=== PATIENT | female | born 1960 | race Caucasian/White ===

== ENCOUNTER → 2016-04-09 | Outpatient (CLI) | payer BC ==
--- NOTE | 2016-04-09 09:29 | US ---
EXAMINATION TYPE: US renals and bladder DATE OF EXAM: 04/09/2016 9:09 AM COMPARISON: NONE CLINICAL HISTORY: R31.9 hematuria. EXAM MEASUREMENTS: Right Kidney: 10.3 x 5.1 x 4.7 cm Left Kidney: 11.4 x 5.4x 5.4 cm FINDINGS: There is no evidence for hydronephrosis at this point in time. No nephrolithiasis is seen. No thi s are identified. The urinary bladder is anechoic. Bilateral ureteral jets are seen. IMPRESSION: No acute process.
--- NOTE | 2016-04-09 10:45 | CT ---
EXAMINATION TYPE: CT soft tissue neck w con DATE OF EXAM: 04/09/2016 10:18 AM COMPARISON: NONE HISTORY: Neck mass; Right sided neck "pulling" CT DLP: 555 mGycm Automated exposure control for dose reduction was used. CONTRAST: CT scan of the neck is performed following with IV Contrast, patient injected with 100 ml mL of Omnip aque 300. Axial images are obtained, coronal and sagittal reformatted images are reviewed. FINDINGS: There are emphysematous changes throughout the lungs. There is some interstitial fibrosis i nvolving the lungs as well. Visualized intracranial structures are unremarkable. The paranasal sinuses and mastoids are clear. Vertebral body height and alignment are maintained. Atlantoaxial relationships are normal. There is d isc space loss at C5-6 and C6-7 with hypertrophic spondylosis at C6-7 level. There is also uncoverteb ral joint disease at C6-7. The facets appear unremarkable. The major salivary glands are normal. There is some shotty submental and deep cervical adenopathy. No pathologically enlarged lymph nodes a re seen. The thyroid gland enhances homogeneously. The parapharyngeal, oropharyngeal and laryngeal soft tissues are normal. No soft tissue mass is ident ified. IMPRESSION: 1. No evidence of a neck mass at this time. 2. Emphysematous and interstitial changes within the lungs. 3. Mild degenerative changes within the cervical spine.
== END | disposition home or self-care (01) ==
LOC: RADUSMAIN 08:42
PROVIDERS: ATTEND Internal Medicine
DX: R22.1 Localized swelling, mass and lump, neck (principal); R31.9 Hematuria, unspecified; R91.8 Other nonspecific abnormal finding of lung field; M47.812 Spondylosis without myelopathy or radiculopathy, cervical region
CPT/HCPCS: 76770; 70491; Q9967

== ENCOUNTER → 2016-05-03 | Outpatient (CLI) | payer BC ==
--- NOTE | 2016-05-03 19:45 | MR ---
EXAMINATION TYPE: MR cervical spine wo con DATE OF EXAM: 05/03/2016 7:28 PM COMPARISON: HISTORY: Neck pain, RUE radic TECHNIQUE: Multiplanar, multisequence images of the cervical spine were acquired. C2-C3: No evidence for degenerative disc disease. No disc bulge/herniation or protrusion. No Canal stenosis. Foramina are patent bilaterally. C3-C4: No evidence for degenerative disc disease. No disc bulge/herniation or protrusion. No Canal stenosis. Foramina are patent bilaterally. C4-C5: Mild disc desiccation noted. Posterocentral disc herniation effaces the ventral thecal sac. No definite cord contact or central stenosis. Neural foramina are patent bilaterally. C5-C6: Moderate disc desiccation. Posterior disc bulge is greater left paracentral component effaces the ventral thecal sac and results in mild left foraminal encroachment. No evidence for central steno sis or cord contact. C6-C7: No evidence for degenerative disc disease. No disc bulge/herniation or protrusion. No Canal stenosis. Foramina are patent bilaterally. C7-T1: No evidence for degenerative disc disease. No disc bulge/herniation or protrusion. No Canal stenosis. Foramina are patent bilaterally. Cervical segments are intact. There is normal alignment. Cervical spinal cord is of normal signal. Craniovertebral junction relationships are within normal limits. IMPRESSION: 1. Generous disc disease as discussed. 2. Posterocentral disc herniation at C4-5 with effacement of the ventral thecal sac. 3. Disc bulge at C5-6 with left foraminal encroachment as noted.
== END | disposition home or self-care (01) ==
LOC: RADMRIMAIN 18:47
PROVIDERS: ATTEND Internal Medicine
DX: M50.30 Other cervical disc degeneration, unspecified cervical region (principal); M50.221 Other cervical disc displacement at C4-C5 level
CPT/HCPCS: 72141

== ENCOUNTER → 2016-07-29 | Outpatient (CLI) | payer BC ==
--- NOTE | 2016-07-29 08:03 | US ---
EXAMINATION TYPE: US abdomen complete DATE OF EXAM: 07/29/2016 COMPARISON: CT and US CLINICAL HISTORY: R10.84 Abdominal Pain. Left abdominal pain with change in stools, nausea and vomiti ng, and mid abdominal hardness. Patient stated midway through US that she has splenic artery aneurysm . EXAM MEASUREMENTS: Liver Length: 14.7 cm Gallbladder Wall: 0.2 cm CBD: 0.4 cm Spleen: 10.6 cm Right Kidney: 11.6 x 6.0 x 4.8 cm Left Kidney: 11.5 x 5.4 x 5.1 cm Pancreas: hyperechoic Liver: mildly heterogeneous; hyperechoic to right renal cortex suggests fatty liver Gallbladder: wnl Evidence for sonographic Hurd's sign: No CBD: wnl Spleen: wnl; no splenic artery aneurysm noted at hilum as vessel caliber appears consistent in size for short segment observed by US. Right Kidney: No hydronephrosis or masses seen Left Kidney: No hydronephrosis or masses seen Upper IVC: wnl Abd Aorta: wnl The liver is slightly heterogenous. The intrahepatic portion of the IVC and proximal abdominal aorta are within normal limits. There is no evidence of cholelithiasis. Common bile duct is unremarkable. The visualized portions of the pancreas are homogenous. The spleen is unremarkable. Kidneys are s ymmetric and free of hydronephrosis. No renal lesions are seen. IMPRESSION: 1. Mild fatty liver suggested.
== END | disposition home or self-care (01) ==
LOC: RADUSWWP 07:01
PROVIDERS: ATTEND Internal Medicine
DX: R10.84 Generalized abdominal pain (principal)
CPT/HCPCS: 76700

== ENCOUNTER 2016-08-20 08:06 | Day surgery (SDC) | payer BC ==
[2016-08-19 11:48] VITALS: BMI 29.7
[~2016-08-20 08:06] MED LIST: LACTATED RINGERS 1,000 ML IV SCH; LIDOCAINE 1% 20 ML VIAL (10MG/ML) FOR IV START INTRADERMA PRN
[2016-08-20 08:39] VITALS: RESP 16
[2016-08-20] MEDS ORDERED: PROPOFOL 10 MG/ML 20 ML VIAL IV ONE (09:29)
--- NOTE | 2016-08-20 09:54 | P.PCN ---
Date of Procedure: 08/20/16 Preoperative Diagnosis: Postoperative Diagnosis: Procedure(s) Performed: Brief history: Patient is a pleasant 56-year-old white female, scheduled for an elective upper endoscopy as well as colonoscopy as a part of evaluation of GERD and screening for colorectal neoplasia. Procedure performed: Esophagogastroduodenoscopy with biopsy Colonoscopy Preoperative diagnosis: GERD Screening for colon cancer Anesthesia: MAC Procedure: After informed consent was obtained from the patient was brought into the endoscopy unit and IV sedation was administered by anesthesia under continuous monitoring. Initially upper endoscopy was done. The Olympus GF 160 video endoscope was inserted inserted into the mouth and esophagus intubated without any difficulty and was gradually advanced into the stomach and duodenum and carefully examined. The bulb and second part of the duodenum appeared normal. The scope was then withdrawn into the stomach adequately insufflated with air and upon careful examination the antrum had mild gastritis and biopsies were done from this area. The body, cardia and fundus appeared normal. The scope was then withdrawn into the esophagus. The GE junction was located at 40 cm to the incisors. It appeared regular with no erythema erosions or ulcerations. Rest of the esophagus appeared normal. Patient tolerated the procedure well. At this time the patient continued to remain sedation. Initial digital rectal examination was normal. Olympus CF 160 video colonoscope was then inserted into the rectum and gradually advanced to the cecum without any difficulty. Careful examination was performed as the scope was gradually being withdrawn. The prep was excellent. The cecum, ascending colon, transverse colon, descending colon, sigmoid colon and rectum appeared normal. Retroflexion was performed in the rectum and no lesions were noted. Scattered sigmoid diverticulosis seen. Patient tolerated the procedure well. Impression: 1. Upper endoscopy revealed mild antral gastritis, no evidence of esophagitis or Stone's esophagus 2. Colonoscopy revealed scattered sigmoid diverticulosis but no evidence of colitis or colorectal neoplasia. Recommendations: Findings of this examination were discussed with the patient as well as her family. She was advised to follow with the biopsy results. She can have a repeat screening colonoscopy in 10 years. He'll continue with Protonix 40 mg daily and follow antireflux measures. Implants: Indications for Procedure: Operative Findings: Description of Procedure:
[2016-08-20 10:44] VITALS: BP 157/79; PULSE 61
== END 2016-08-20 11:18 | disposition home or self-care (01) ==
LOC: ORWHC2ENDO 08:06
PROVIDERS: ATTEND Internal Medicine Gastroenterology
DX: K29.70 Gastritis, unspecified, without bleeding (principal); Z12.11 Encounter for screening for malignant neoplasm of colon; K21.9 Gastro-esophageal reflux disease without esophagitis; K31.9 Disease of stomach and duodenum, unspecified; K57.30 Diverticulosis of large intestine without perforation or abscess without bleeding; I10 Essential (primary) hypertension; Z79.899 Other long term (current) drug therapy; Z88.6 Allergy status to analgesic agent
CPT/HCPCS: 88305; 88342; 43239; J2704; G0121

== ENCOUNTER → 2016-09-07 | Outpatient (CLI) | payer BC ==
--- NOTE | 2016-09-08 13:08 | MM ---
Reason for exam: screening (asymptomatic). Last mammogram was performed 2 years and 7 months ago. History: Patient is postmenopausal. Physical Findings: A clinical breast exam by your physician is recommended on an annual basis and results should be correlated with mammographic findings. MG Screening Mammo w CAD Bilateral CC and MLO view(s) were taken. Prior study comparison: January 14, 2014, bilateral MG screening mammo w CAD. There are scattered fibroglandular densities. No significant changes when compared with prior studies. ASSESSMENT: Benign, BI-RAD 2 RECOMMENDATION: Routine screening mammogram of both breasts in 1 year.
== END | disposition home or self-care (01) ==
LOC: RADMAMWWP 11:13
PROVIDERS: ATTEND Internal Medicine
DX: Z12.31 Encounter for screening mammogram for malignant neoplasm of breast (principal)

== ENCOUNTER → 2016-10-29 | Outpatient (CLI) | payer BC ==
--- NOTE | 2016-10-29 23:14 | MR ---
EXAMINATION TYPE: MR lumbar spine wo con DATE OF EXAM: 10/29/2016 COMPARISON: NONE HISTORY: LBP, LLE radic TECHNIQUE: Multiplanar, multisequence images of the lumbar spine were acquired. The lumbar vertebra have normal alignment. There is degenerative disc space narrowing throughout the lumbar spine and more severe at L4-5. Lumbar nerve roots appear normal. There is no compression fract ure. There is no lumbar paraspinal mass. Sacroiliac joints appear normal. There is some hypertrophic facet arthropathy and mild lateral recess stenosis at L4-5. There is mild narrowing of the neural for rober due to disc space narrowing and facet arthropathy. This is more severe at L4-5. There are small posterior disc bulges at L2-3 L3-4 L5-S1. IMPRESSION: Multilevel spondylosis. Mild neural foraminal narrowing at L4-5 due to disc space narrowing and facet arthropathy. No acute bony abnormality. Mild lateral recess stenosis as above. No fracture. Small mu ltilevel posterior disc bulging or herniation.
== END | disposition home or self-care (01) ==
LOC: RADMRIMAIN 17:59
PROVIDERS: ATTEND Internal Medicine
DX: M48.06 Spinal stenosis, lumbar region (principal); M99.73 Connective tissue and disc stenosis of intervertebral foramina of lumbar region; M51.26 Other intervertebral disc displacement, lumbar region; M47.816 Spondylosis without myelopathy or radiculopathy, lumbar region; M46.06 Spinal enthesopathy, lumbar region
CPT/HCPCS: 72148

== ENCOUNTER → 2017-05-10 | Outpatient (CLI) | payer BC ==
--- NOTE | 2017-05-10 15:00 | CT ---
EXAMINATION TYPE: CT sinus wo con DATE OF EXAM: 05/10/2017 COMPARISON: 11/14/2014 HISTORY: No saliva and bad breath x 1 year +. CT DLP: [address] of the paranasal sinuses was performed in the axial and coronal planes. Bone and soft tissue settings are submitted. The paranasal sinuses demonstrate normal aeration and development. The paranasal sinuses are free of mucosal thickening or air fluid level. The osteal meatal units are patent bilaterally. Mild nasal septal deviation from left to right. No bony destructive changes are seen within the field of view. IMPRESSION: Mild nasal septal deviation from left to right.
== END | disposition home or self-care (01) ==
LOC: RADCTMAIN 14:26
PROVIDERS: ATTEND Internal Medicine
DX: J34.2 Deviated nasal septum (principal); J32.9 Chronic sinusitis, unspecified
CPT/HCPCS: 70486

== ENCOUNTER → 2018-05-10 | Outpatient (CLI) | payer BC ==
--- NOTE | 2018-05-10 12:48 | XR ---
EXAMINATION TYPE: XR chest 2V DATE OF EXAM: 05/10/2018 COMPARISON: 02/05/2015 TECHNIQUE: PA and lateral views submitted. HISTORY: Cough and congestion FINDINGS: The lungs are clear and there is no pneumothorax, pleural effusion, or focal pneumonia. Hyperinflat ion suggests asthma or COPD. Hypertrophic or degenerative change of the spine. Atherosclerotic change aorta. Arthropathy of the shoulders. Diffuse osteopenia. IMPRESSION: 1. No acute process.
== END | disposition home or self-care (01) ==
LOC: RADXRMAIN 12:10
PROVIDERS: ATTEND Internal Medicine
DX: R05 Cough (principal)
CPT/HCPCS: 71046

== ENCOUNTER 2018-10-13 17:45 | Emergency (ER) | payer BC ==
[2018-10-13 17:57] VITALS: BP 111/73; PULSE 98; RESP 18; TEMP 99.2
--- NOTE | 2018-10-13 18:32 | XR ---
EXAMINATION TYPE: XR foot complete LT DATE OF EXAM: 10/13/2018 COMPARISON: NONE HISTORY: Foot pain TECHNIQUE: 3 views FINDINGS: Metatarsals appear intact. I see no fracture nor dislocation. There are no erosions. There is plantar calcaneal spurring. IMPRESSION: Calcaneal spurring. No fracture seen.
--- NOTE | 2018-10-13 18:32 | XR ---
EXAMINATION TYPE: XR ankle complete LT DATE OF EXAM: 10/13/2018 COMPARISON: NONE HISTORY: Foot pain TECHNIQUE: 3 views FINDINGS: Ankle mortise is anatomic. I see no fracture nor dislocation. There is plantar calcaneal sp urring. IMPRESSION: Calcaneal spurring. No fracture seen.
--- NOTE | 2018-10-13 19:07 | ED ---
General Adult HPI - General Chief complaint: Extremity Injury, Lower Stated complaint: Ankle injury Time Seen by Provider: 10/13/18 17:58 Source: patient, RN notes reviewed, old records reviewed Mode of arrival: ambulatory Limitations: no limitations - History of Present Illness Initial comments: 58-year-old female patient presents to the chief complaint of left ankle sprain. Patient ports that she was working in yard when she stepped into a hole, suffered a left ankle inversion injury. Patient currently complains of pain at her lateral malleoli. Patient is nonambulatory. She denies any other injury, denies any trauma to head or neck. Systemic: Pt denies fatigue, fever/chills, rash. Pt denies weakness, night sweats, weight loss. Neuro: Pt denies headache, visual disturbances, syncope or pre-syncope. HEENT: Pt denies ocular discharge or irritation, otalgia, rhinorrhea, pharyngitis or notable lymphadenopathy. Cardiopulmonary: Pt denies chest pain, SOB, heart palpitations, dyspnea on exertion. Abdominal/GI: Pt denies abdominal pain, n/v/d. : Pt denies dysuria, burning w/ urination, frequency/urgency. Denies new onset urinary or bowel incontinence. MSK: Pt denies loss of strength or function in extremities. Neuro: Pt denies new onset weakness, paresthesias. - Related Data Home Medications Medication Instructions Recorded Confirmed Losartan Potassium 100 mg PO DAILY 11/19/14 08/20/16 Carvedilol [Coreg] 3.125 mg PO QAM 08/19/16 08/20/16 Omeprazole [PriLOSEC] 20 mg PO AC-BID 08/19/16 08/20/16 Pantoprazole [Protonix] 40 mg PO DAILY 08/19/16 08/20/16 Allergies Allergy/AdvReac Type Severity Reaction Status Date / Time ibuprofen [From Motrin] AdvReac Nausea & Verified 10/13/18 17:57 Vomiting naproxen [From Naprosyn] AdvReac Nausea & Verified 10/13/18 17:57 Vomiting Review of Systems ROS Statement: Those systems with pertinent positive or pertinent negative responses have been documented in the HPI. ROS Other: All systems not noted in ROS Statement are negative. Past Medical History Past Medical History: GERD/Reflux, Hypertension Additional Past Medical History / Comment(s): states has had abdominal bloating and vomiting/nausea for weeks. rt shoulder pain, bicep tendonitis, neck pain History of Any Multi-Drug Resistant Organisms: None Reported Past Surgical History: Bladder Surgery, Hysterectomy, Tonsillectomy, Tubal Ligation Past Anesthesia/Blood Transfusion Reactions: No Reported Reaction Past Psychological History: Anxiety Smoking Status: Current every day smoker Past Alcohol Use History: Occasional Past Drug Use History: None Reported - Past Family History Mother Family Medical History: No Reported History General Exam - General Exam Comments Initial Comments: Constitutional: NAD, AOX3, Pt has pleasant affect. HEENT: NC/AT, trachea midline, neck supple, no lymphadenopathy. Posterior pharynx non erythematous, without exudates. External ears appear normal, without discharge. Mucous membranes moist. Eyes PERRLA, EOM intact. There is no scleral icterus. No pallor noted. Cardiopulmonary: RRR, no murmurs, rubs or gallops, no JVD noted. Lungs CTAB in anterior and posterior werner. No peripheral edema. Abdominal exam: Abdomen soft and non-distended. Abdomen non-tender to palpation in all 4 quadrants. Bowel sounds active in LLQ. No hepatosplenomegaly. No ecchymosis Neuro: CN II-XII grossly intact. No nuchal rigidity. No raccon eyes, no bell s ign, no hemotympanum. No cervical spinal tenderness. MSK: Left Lateral malleoli moderately tender to palpation, no jugular/and tach, patient little toes, cap refill less than 2 seconds. Patient placed in a posterior ankle splint neurovascular intact Placement. No posterior calf tenderness bilaterally, homans sign negative bilaterally. Posterior tibialis and radial pulse +2 bilaterally. Sensation intact in upper and lower extremities. Full active ROM in upper and lower extremities, 5/5 stregnth. Limitations: no limitations Course Vital Signs 10/13/18 17:55 Temperature 99.2 F Pulse Rate 98 Respiratory 18 Rate Blood Pressure 111/73 O2 Sat by Pulse 99 Oximetry Medical Decision Making - Medical Decision Making 58-year-old female patient presents to ED chief complaint of left ankle sprain. Patient vital signs stable, afebrile. His exam displayed left lateral malleolus tenderness. Plain films negative. Patient placed a posterior ankle splint, neurovascular intact of some pleasant. Patient will have right ankle, Lasix crutches and will follow up with primary care provider as well as orthopedic consult. Case discussed with Dr. Valerio. Disposition Clinical Impression: Ankle sprain Disposition: HOME SELF-CARE Condition: Stable Instructions (If sedation given, give patient instructions): Ankle Sprain (ED) Additional Instructions: Patient to adhere to previously discussed treatment plan and will take medication(s) as directed. Patient to follow up with PCP in 1-2 days. Patient to return to ED if symptoms do not improve. Follow up with primary care provider and orthopedic consult tomorrow. Return to ER if condition worsens. Use crutches, do not bear weight on affected ankle. Is patient prescribed a controlled substance at d/c from ED?: No Referrals: Rubén Pitt MD [Primary Care Provider] - 1-2 days Connor Rivera MD [STAFF PHYSICIAN] - 1-2 days
== END 2018-10-13 19:40 | disposition home or self-care (01) ==
LOC: EC 17:45
DX: S93.402A Sprain of unspecified ligament of left ankle, initial encounter (principal); K21.9 Gastro-esophageal reflux disease without esophagitis; I10 Essential (primary) hypertension; F17.200 Nicotine dependence, unspecified, uncomplicated; Z79.02 Long term (current) use of antithrombotics/antiplatelets; Z79.899 Other long term (current) drug therapy; Z88.6 Allergy status to analgesic agent; W18.42XA Slipping, tripping and stumbling without falling due to stepping into hole or opening, initial encounter; Y92.096 Garden or yard of other non-institutional residence as the place of occurrence of the external cause
CPT/HCPCS: 29515; 99284

== ENCOUNTER 2019-10-10 12:32 | Emergency (ER) | payer BC ==
[2019-10-10 12:40] VITALS: TEMP 98
[2019-10-10] MEDS ORDERED: MORPHINE SULFATE 4 MG/ML SYRINGE IVP STA (12:57)
[2019-10-10] MEDS ORDERED: ONDANSETRON 4 MG/2 ML VIAL IVP STA (12:58)
[2019-10-10] MEDS ORDERED: SODIUM CHLORIDE 0.9% 1,000 ML IV STA (13:04)
--- NOTE | 2019-10-10 13:06 | ED ---
General Adult HPI - General Chief complaint: Abdominal Pain Stated complaint: abd pain Time Seen by Provider: 10/10/19 12:42 Source: patient, EMS Mode of arrival: EMS Limitations: no limitations - History of Present Illness Initial comments: Dictation was produced using [employer] dictation software. please excuse any grammatical, word or spelling errors. This patient was cared for during a federal and state declared state of emergency secondary to Covid 19 Chief Complaint: 59-year-old female with multiple comorbidities presents with l eft-sided flank pain. History of Present Illness: 59-year-old female she has multiple complaints pa tient brought in by EMS. She states that she has left lower back pain. Patient has history of chronic back pain. She also states that she hasn't had a normal bowel movement in several days. She also does have history of kidney stones. She does complain of some mild urinary symptoms. She denies that it's dysuria. She describes it more as urgency and hesitancy. Denies any fever or chills, night sweats. No nausea and vomiting. They said her pain is so severe that she can't sit down or lay down. The ROS documented in this emergency department record has been reviewed and confirmed by me. Those systems with pertinent positive or negative responses have been documented in the HPI. All other systems are other negative and/or noncontributory. PHYSICAL EXAM: General Impression: Alert and oriented x3, acute distress secondary to pain HEENT: Normocephalic atraumatic, extra-ocular movements intact, pupils equal and reactive to light bilaterally, mucous membranes moist. Cardiovascular: Heart regular rate and rhythm Chest: Able to complete full sentences, no retractions, no tachypnea Abdomen: abdomen soft, non-tender, non-distended, no organomegaly Musculoskeletal: Pulses present and equal in all extremities, no peripheral edema, no CVA tenderness mild tenderness to palpation over the left lower back Motor: no focal deficits noted Neurological: CN II-XII grossly intact, no focal motor or sensory deficits noted Skin: Intact with no visualized rashes Psych: Normal affect and mood ED course: 59-year-old female presents with left-sided back and flank pain. Signs upon arrival are within acceptable limits. Laboratory evaluation obtained. Leukocytosis 15.7. Metabolic panel shows mild acidosis. Urinalysis shows greater then 182 red blood cells and 6 white blood cells. Computed tomography scan of the abdomen and pelvis was obtained showing obstructive distal left ureteral calculus. There appears to be 2 calculi in the left ureter. These stones appear to be very distal and near expulsion into the bladder Patient received fluids patient reevaluated at bedside and appears to be much more comfortable. Patient likely passed stone from her ureter to the bladder. Patient agreeable for discharge. She is given analgesia to go home with. She is given referral to urology. Return parameters discussed. Patient be discharged. - Related Data Home Medications Medication Instructions Recorded Confirmed Losartan Potassium 100 mg PO DAILY 11/19/14 10/10/19 Carvedilol [Coreg] 3.125 mg PO QAM 08/19/16 10/10/19 Omeprazole [PriLOSEC] 20 mg PO DAILY 08/19/16 10/10/19 Ergocalciferol [Vitamin D2] 50,000 unit PO CHARLES 10/10/19 10/10/19 Pravastatin Sodium [Pravachol] 20 mg PO HS 10/10/19 10/10/19 traMADol HCL [Ultram] 50 mg PO Q6HR PRN 10/10/19 10/10/19 Previous Rx's Medication Instructions Recorded HYDROcodone/APAP 5-325MG [Edgard 1 tab PO Q6HR PRN 3 Days #12 tab 10/10/19 5-325] Allergies Allergy/AdvReac Type Severity Reaction Status Date / Time ibuprofen [From Motrin] AdvReac Nausea & Verified 10/10/19 13:53 Vomiting naproxen [From Naprosyn] AdvReac Nausea & Verified 10/10/19 13:53 Vomiting Review of Systems ROS Statement: Those systems with pertinent positive or pertinent negative responses have been documented in the HPI. ROS Other: All systems not noted in ROS Statement are negative. Past Medical History Past Medical History: GERD/Reflux, Hypertension Additional Past Medical History / Comment(s): states has had abdominal bloating and vomiting/nausea for weeks. rt shoulder pain, bicep tendonitis, neck pain History of Any Multi-Drug Resistant Organisms: None Reported Past Surgical History: Bladder Surgery, Hysterectomy, Tonsillectomy, Tubal Ligation Past Anesthesia/Blood Transfusion Reactions: No Reported Reaction Past Psychological History: Anxiety Smoking Status: Current every day smoker Past Alcohol Use History: Occasional Past Drug Use History: None Reported - Past Family History Mother Family Medical History: No Reported History General Exam Limitations: no limitations Course Vital Signs 10/10/19 10/10/19 12:37 12:44 Temperature 98 F Pulse Rate 78 Respiratory 20 Rate Blood Pressure 157/94 O2 Sat by Pulse 97 Oximetry Medical Decision Making - Lab Data Result diagrams: 10/10/19 13:01 10/10/19 13:01 Lab Results 10/10/19 10/10/19 10/10/19 Range/Units 13:01 13:01 13:01 WBC 15.7 H (3.8-10.6) k/uL RBC 4.81 (3.80-5.40) m/uL Hgb 15.4 (11.4-16.0) gm/dL Hct 46.8 H (34.0-46.0) % MCV 97.1 (80.0-100.0) fL MCH 32.1 (25.0-35.0) pg MCHC 33.0 (31.0-37.0) g/dL RDW 11.9 (11.5-15.5) % Plt Count 354 (150-450) k/uL Neutrophils % 87 % Lymphocytes % 8 % Monocytes % 3 % Eosinophils % 1 % Basophils % 0 % Neutrophils # 13.7 H (1.3-7.7) k/uL Lymphocytes # 1.3 (1.0-4.8) k/uL Monocytes # 0.5 (0-1.0) k/uL Eosinophils # 0.1 (0-0.7) k/uL Basophils # 0.0 (0-0.2) k/uL PT (9.0-12.0) sec INR (<1.2) APTT (22.0-30.0) sec Sodium 138 (137-145) mmol/L Potassium 4.6 (3.5-5.1) mmol/L Chloride 108 H (98-107) mmol/L Carbon Dioxide 19 L (22-30) mmol/L Anion Gap 11 mmol/L BUN 17 (7-17) mg/dL Creatinine 0.84 (0.52-1.04) mg/dL Est GFR (CKD-EPI)AfAm 88 (>60 ml/min/1.73 sqM) Est GFR (CKD-EPI)NonAf 76 (>60 ml/min/1.73 sqM) Glucose 128 H (74-99) mg/dL Calcium 9.9 (8.4-10.2) mg/dL Magnesium 1.8 (1.6-2.3) mg/dL Total Bilirubin 0.8 (0.2-1.3) mg/dL AST 41 H (14-36) U/L ALT 35 H (4-34) U/L Alkaline Phosphatase 82 (38-126) U/L Total Protein 7.3 (6.3-8.2) g/dL Albumin 4.7 (3.5-5.0) g/dL Lipase 88 (23-300) U/L Urine Color Light Red Urine Appearance Cloudy H (Clear) Urine pH 6.5 (5.0-8.0) Ur Specific [place] 1.029 (1.001-1.035) Urine Protein 1+ H (Negative) Urine Glucose (UA) Negative (Negative) Urine Ketones Negative (Negative) Urine Blood Large H (Negative) Urine Nitrite Negative (Negative) Urine Bilirubin Negative (Negative) Urine Urobilinogen 2.0 (<2.0) mg/dL Ur Leukocyte Esterase Trace H (Negative) Urine RBC >182 H (0-5) /hpf Urine WBC 6 H (0-5) /hpf Ur Squamous Epith Cells 24 H (0-4) /hpf Urine Bacteria Occasional H (None) /hpf Hyaline Casts 3 H (0-2) /lpf Urine Mucus Few H (None) /hpf 10/10/19 Range/Units 14:34 WBC (3.8-10.6) k/uL RBC (3.80-5.40) m/uL Hgb (11.4-16.0) gm/dL Hct (34.0-46.0) % MCV (80.0-100.0) fL MCH (25.0-35.0) pg MCHC (31.0-37.0) g/dL RDW (11.5-15.5) % Plt Count (150-450) k/uL Neutrophils % % Lymphocytes % % Monocytes % % Eosinophils % % Basophils % % Neutrophils # (1.3-7.7) k/uL Lymphocytes # (1.0-4.8) k/uL Monocytes # (0-1.0) k/uL Eosinophils # (0-0.7) k/uL Basophils # (0-0.2) k/uL PT 10.1 (9.0-12.0) sec INR 1.0 (<1.2) APTT 23.2 (22.0-30.0) sec Sodium (137-145) mmol/L Potassium (3.5-5.1) mmol/L Chloride (98-107) mmol/L Carbon Dioxide (22-30) mmol/L Anion Gap mmol/L BUN (7-17) mg/dL Creatinine (0.52-1.04) mg/dL Est GFR (CKD-EPI)AfAm (>60 ml/min/1.73 sqM) Est GFR (CKD-EPI)NonAf (>60 ml/min/1.73 sqM) Glucose (74-99) mg/dL Calcium (8.4-10.2) mg/dL Magnesium (1.6-2.3) mg/dL Total Bilirubin (0.2-1.3) mg/dL AST (14-36) U/L ALT (4-34) U/L Alkaline Phosphatase (38-126) U/L Total Protein (6.3-8.2) g/dL Albumin (3.5-5.0) g/dL Lipase (23-300) U/L Urine Color Urine Appearance (Clear) Urine pH (5.0-8.0) Ur Specific [place] (1.001-1.035) Urine Protein (Negative) Urine Glucose (UA) (Negative) Urine Ketones (Negative) Urine Blood (Negative) Urine Nitrite (Negative) Urine Bilirubin (Negative) Urine Urobilinogen (<2.0) mg/dL Ur Leukocyte Esterase (Negative) Urine RBC (0-5) /hpf Urine WBC (0-5) /hpf Ur Squamous Epith Cells (0-4) /hpf Urine Bacteria (None) /hpf Hyaline Casts (0-2) /lpf Urine Mucus (None) /hpf Disposition Clinical Impression: Kidney stone on left side Disposition: HOME SELF-CARE Condition: Fair Instructions (If sedation given, give patient instructions): Kidney Stones (ED) Prescriptions: HYDROcodone/APAP 5-325MG [Edgard 5-325] 1 tab PO Q6HR PRN 3 Days #12 tab PRN Reason: Severe Pain Is patient prescribed a controlled substance at d/c from ED?: Yes If prescribed controlled substance>3 days was MAPS reviewed?: Prescribed <3 Days Referrals: Jeanmarie Pittman MD [STAFF PHYSICIAN] - 1-2 days Time of Disposition: 15:38
[2019-10-10] MEDS ORDERED: HYDROmorphone 1 MG/ML 1 ML SYRINGE IVP STA ×2 (13:29→14:12)
[2019-10-10 13:37] LABS: Appearance,Urine Cloudy (Clear); Bacteria,Urine Occasional /hpf; Bilirubin,Urine Negative (Negative); Blood,Urine Large (Negative); Color,Urine Light Red; Glucose,Urine (UA) Negative (Negative); Hyaline Casts,Urine 3 /lpf (0-2); Ketones,Urine Negative (Negative); Leukocyte Esterase,Urine Trace (Negative); Mucus,Urine Few /hpf; Nitrite,Urine Negative (Negative); PH, Urine 6.5 (5.0-8.0); Protein,Urine 1+ (Negative); RBC,Urine >182 /hpf (0-5); Specific Gravity,Urine 1.029 (1.001-1.035); Squamous Epithelial Cell,Urine 24 /hpf (0-4); WBC,Urine 6 /hpf (0-5)
[2019-10-10 13:53] LABS: Basophils % (A) 0 %; Eosinophils # (A) 0.1 k/uL (0-0.7); Eosinophils % (A) 1 %; HCT 46.8 % (34.0-46.0); HGB 15.4 gm/dL (11.4-16.0); Lymphocytes # (A) 1.3 k/uL (1.0-4.8); Lymphocytes % (A) 8 %; MCH 32.1 pg (25.0-35.0); MCV 97.1 fL (80.0-100.0); Mean Platelet Volume 8.1; Monocytes # (A) 0.5 k/uL (0-1.0); Monocytes % (A) 3 %; Neutrophils # (A) 13.7 k/uL (1.3-7.7); Neutrophils % (A) 87 %; Platelet Count 354 k/uL (150-450); RBC 4.81 m/uL (3.80-5.40); RDW 11.9 % (11.5-15.5); WBC 15.7 k/uL (3.8-10.6)
[2019-10-10 14:04] LABS: Albumin 4.7 g/dL (3.5-5.0); Calcium 9.9 mg/dL (8.4-10.2); Magnesium 1.8 mg/dL (1.6-2.3); Potassium 4.6 mmol/L (3.5-5.1); Total Bilirubin 0.8 mg/dL (0.2-1.3); Total Protein 7.3 g/dL (6.3-8.2)
--- NOTE | 2019-10-10 14:31 | CT ---
EXAMINATION TYPE: CT abdomen pelvis w con DATE OF EXAM: 10/10/2019 COMPARISON: CT 11/26/2014 HISTORY: Left sided pain with rectal pressure. CT DLP: 1061.2 mGycm Automated exposure control for dose reduction was used. TECHNIQUE: Helical acquisition of images from the lung bases through the pelvis have been completed. CONTRAST: Performed without Oral Contrast and with IV Contrast, patient injected with 100 mL of Isovue 300. FINDINGS: LUNG BASES: No significant abnormality is appreciated. AORTA: No significant abnormality is appreciated. LIVER/GB: Liver shows low attenuation likely due to hepatic steatosis. Gallbladder is unremarkable. PANCREAS: No significant abnormality is seen. SPLEEN: No significant abnormality is seen. ADRENALS: No significant abnormality is seen. KIDNEYS: Left kidney shows perinephric fluid and hydronephrosis, there is left-sided hydroureter. At the level of the distal left ureter there is calcification present at the level of the ureterovesical orifice, there may be 2 separate calcifications, calcification measures roughly 6 mm with a possible second smaller calcification measuring 3 to 4 mm REPRODUCTIVE ORGANS: Uterus is absent, ovaries within normal limits BOWEL: Some diverticular change associated with the sigmoid colon, there is no bowel obstruction, th e appendix is normal FREE AIR: No Free Air visible. ASCITES: None visible. PELVIC ADENOPATHY: None visualized. RETROPERITONEAL ADENOPATHY: No Retroperitoneal Adenopathy visible. URINARY BLADDER: No significant abnormality is seen. OSSEOUS STRUCTURES: There are degenerative disc changes present within the lumbar spine, there is a spinal curvature. IMPRESSION: OBSTRUCTIVE DISTAL LEFT URETERAL CALCULUS OR CALCULI PROBABLE FORNICEAL RUPTURE
[2019-10-10 15:03] LABS: Partial Thromboplastin Time 23.2 sec (22.0-30.0); Prothrombin Time 10.1 sec (9.0-12.0)
[2019-10-10] MEDS ORDERED: ACET/COD 300 MG/30 MG STARTER PACK 6 TAB BTL PO STA (15:38)
[2019-10-10] MEDS ORDERED: ONDANSETRON 4 MG ODT STARTER PACK 2 TAB BTL PO STA (15:38)
[2019-10-10 16:21] VITALS: BP 148/87; PULSE 80; RESP 16
== END 2019-10-10 16:19 | disposition home or self-care (01) ==
LOC: EC 12:32
DX: N20.2 Calculus of kidney with calculus of ureter (principal); E87.2 Acidosis; K21.9 Gastro-esophageal reflux disease without esophagitis; I10 Essential (primary) hypertension; G89.29 Other chronic pain; M54.9 Dorsalgia, unspecified; F17.200 Nicotine dependence, unspecified, uncomplicated; Z79.899 Other long term (current) drug therapy; Z88.6 Allergy status to analgesic agent; Z87.442 Personal history of urinary calculi
CPT/HCPCS: 36415; 80053; 83690; 83735; 85025; 85610; 85730; 81001; 74177; 99284; 96374; 96375 ×2; 96376; 96361; J2270; J2405; J1170; S0119; Q9967

== ENCOUNTER → 2019-10-25 | Outpatient (CLI) | payer BC ==
--- NOTE | 2019-10-25 18:01 | US ---
EXAMINATION TYPE: US kidneys/renal and bladder DATE OF EXAM: 10/25/2019 COMPARISON: CT 10/10/19; Ultrasound 07/29/2016 CLINICAL HISTORY: N13.2 L hydroureternephrosis. Left ureter calculus; Pressure in bladder area. EXAM MEASUREMENTS: Right Kidney: 11.7 x 5.4 x 5.7 cm Left Kidney: 12.7 x 5.2 x 4.9 cm Right Kidney: No hydronephrosis or masses seen. Left Kidney: No hydronephrosis or masses seen. Bladder: Unremarkable as seen. Other: Suggested 5 mm hyperechoic focus near expected position of distal left ureter, which could re present calcification. However, left Doppler ureteral jet is visualized; so no obstructive uropathy a t this time. Bilateral Jets seen: Yes IMPRESSION: Negative for obstructive uropathy at this time.
== END | disposition home or self-care (01) ==
LOC: RADUSWWP 15:23
PROVIDERS: ATTEND Urology
DX: N13.2 Hydronephrosis with renal and ureteral calculous obstruction (principal)
CPT/HCPCS: 76770

== ENCOUNTER → 2020-08-04 | Outpatient (CLI) | payer BC ==
--- NOTE | 2020-08-04 13:33 | US ---
EXAMINATION TYPE: US venous doppler duplex LE RT DATE OF EXAM: 08/04/2020 1:21 PM COMPARISON: Right lower extremity venous ultrasound February 17, 2016 CLINICAL HISTORY: M79.661 PAIN IN RT LOWER LIMB. PATIENT FELL LUMP ON SIDE OF KNEE SIDE PERFORMED: Right TECHNIQUE: The lower extremity deep venous system is examined utilizing real time linear array sonog virgie with graded compression, doppler sonography and color-flow sonography. VESSELS IMAGED: Common Femoral Vein Deep Femoral Vein Greater Saphenous Vein * Femoral Vein Popliteal Vein Small Saphenous Vein * Proximal Calf Veins (* superficial vessels) Right Leg: Negative for DVT Grayscale, color doppler, spectral doppler imaging performed of the deep veins of the right lower ext remity. There is normal flow, compressibility, vascular waveforms. IMPRESSION: No ultrasound evidence for acute DVT in the right lower extremity. No significant change from prior.
== END | disposition home or self-care (01) ==
LOC: RADUSWWP 13:02
PROVIDERS: ATTEND Internal Medicine
DX: M79.661 Pain in right lower leg (principal)

== ENCOUNTER → 2021-01-08 | Outpatient (CLI) | payer BC ==
--- NOTE | 2021-01-08 15:34 | CT ---
EXAMINATION TYPE: CT sinus wo con DATE OF EXAM: 01/08/2021 COMPARISON: CT May 10, 2017 HISTORY: Acute Sinusitis CT DLP: 570.8 mGycm. Automated Exposure Control for Dose Reduction was Utilized. TECHNIQUE: CT scan of the sinuses is performed without contrast, axial images are obtained, coronal r eformatted images are also reviewed. FINDINGS: The paranasal sinuses including the frontal, ethmoid, sphenoid, and maxillary sinuses bila terally remain well-aerated without abnormal opacification or air fluid levels currently. The ostiom eatal complex is patent bilaterally on coronal image 13. Nasal septum remains deviated to right of m idline inferiorly. Visualized portion of mastoid air cells show no abnormal opacification. The globes are intact bilate rally. Visualized portion of brain parenchyma is unremarkable. IMPRESSION: The sinuses remain clear and the ostiomeatal complex is patent bilaterally. No significa nt change from prior.
== END | disposition home or self-care (01) ==
LOC: RADCTMAIN 14:37
PROVIDERS: ATTEND Otolaryngology
DX: J34.2 Deviated nasal septum (principal)
CPT/HCPCS: 70486

== ENCOUNTER → 2021-03-18 | Outpatient (CLI) | payer BC ==
--- NOTE | 2021-03-19 10:22 | MM ---
Reason for exam: screening (asymptomatic). Last mammogram was performed 4 years and 6 months ago. History: Patient is postmenopausal. Physical Findings: A clinical breast exam by your physician is recommended on an annual basis and results should be correlated with mammographic findings. MG 3D Screening Mammo W/Cad Bilateral CC and MLO view(s) were taken. Prior study comparison: September 07, 2016, bilateral MG screening mammo w CAD. February 04, 2014, left breast MG work up mamm w CAD LT. There are scattered fibroglandular densities. Finding #1: There are typically benign round calcifications in the left breast. Finding #2: There are new grouped/clustered calcifications in the posterior position of the right breast. ASSESSMENT: Incomplete: need additional imaging evaluation, BI-RAD 0 RECOMMENDATION: Special view mammogram of the right breast. [facility] will attempt to contact patient to return for supplemental views.
== END | disposition home or self-care (01) ==
LOC: RADMAMWWP 16:13
PROVIDERS: ATTEND Internal Medicine
DX: Z12.31 Encounter for screening mammogram for malignant neoplasm of breast (principal); Z78.0 Asymptomatic menopausal state
CPT/HCPCS: 77063; 77067

== ENCOUNTER → 2021-06-08 | Day surgery (SDC) | payer BC ==
[2021-06-08 10:45] VITALS: BP 150/89; PULSE 75; RESP 16; TEMP 97.9
--- NOTE | 2021-06-08 13:53 | MM ---
EXAMINATION TYPE: MG discontinued stereo core RT DATE OF EXAM: 06/08/2021 COMPARISON: NONE CLINICAL HISTORY: Microcalcifications right breast FINDINGS: The procedure of stereotactic guided core biopsy was explained to the patient. Benefits, a lternatives, and risks were discussed. An informed consent was then obtained. The patient could not tolerate laying flat on the stereotactic procedure table and therefore examinat ion was discontinued. Needle localization with open biopsy is advised. IMPRESSION: Suspicious BI-RADS 4. Needle Localization with open biopsy is advised.
== END ==
LOC: RADMAMWWP 10:12
PROVIDERS: ATTEND Internal Medicine
DX: R92.8 Other abnormal and inconclusive findings on diagnostic imaging of breast (principal); Z53.8 Procedure and treatment not carried out for other reasons

== ENCOUNTER → 2021-09-18 | Outpatient (CLI) | payer BC ==
[2021-09-18 11:02] VITALS: BP 162/91; PULSE 73; RESP 16; TEMP 98.1
--- NOTE | 2021-09-18 11:46 | P.GSHP ---
History of Present Illness H&P Date: 09/18/21 Chief Complaint: abnormal right breast mammogram Miriam is a 61 year old white female seen in consultation for Dr. Pitt regarding microcalcifications of concern in the lower lateral right breast. A bilateral diagnostic mammogram was done on 03-18-21. NOthing of concern was seen on the left breast. An attempted stero biopsy was done on 06-08-21. The patient could not tolerate the table and was referred for needle localization and open biopsy. As herniated disc in her back and neck as well as arthritis in her spine. The patient does not feel any lumps masses or nodules of concern in either breast. She is not complaining of any pain in her breast. She has not had any recent trauma or infection in the breast. She has not had any surgery on her breast in the past. Caffiene: stopped used to drink pop/2 glasses/day; coffee/ 1 pot/day nicotine: 2 PPD/ stopped 4 months ago; started at 15 years hormones: premarin 1 month; BCP: none chocolate: binge Family History: mother: rectal cancer Hormonal History: menarche: 12 , breast fed: yes, age at first : 20 menopause: hysterectomy at 50 took ovaries, done for bleeding Surgical History: bladder lift hysterectomy tonsil Medical History: back pain herniated disc HTN Social History: 18:2 packs per day stopped 4 months ago started at 15 Alcohol: rare drugs: Marijuana gummies, occasional - Constitutional Constitutional: Denies chills, Denies fever - EENT Eyes: bilateral blurred vision, denies pain Ears: deny: decreased hearing, tinnitus Ears, nose, mouth and throat: Reports headache - Breasts Breasts: bilateral: as per HPI - Cardiovascular Cardiovascular: Denies chest pain, Denies shortness of breath - Respiratory Respiratory: Denies cough, Denies 7 - Gastrointestinal Comment: had a colonoscopy about 5 years recommended to have another Gastrointestinal: Denies abdominal pain, Denies diarrhea, Denies nausea, Denies vomiting - Genitourinary (Female) Comment: bladder lift Genitourinary: Denies dysuria, Denies hematuria - Menstruation Menstruation: Reports post hysterectomy - Musculoskeletal Musculoskeletal: Reports as per HPI - Integumentary Integumentary: Denies pruritus, Denies rash - Neurological Neurological: Reports numbness, Denies weakness - Psychiatric Psychiatric: Reports anxiety, Reports depression - Endocrine Endocrine: Reports weight change, Denies fatigue - Hematologic/Lymphatic Comment: none - Allergic/Immunologic Allergic/Immunologic: Reports as per HPI Past Medical History Past Medical History: GERD/Reflux, Hypertension Additional Past Medical History / Comment(s): 2 herniated dics in neck and two in back. Right shoulder pain, bicep tendonitis, neck pain History of Any Multi-Drug Resistant Organisms: None Reported Past Surgical History: Bladder Surgery, Hysterectomy, Tonsillectomy, Tubal Ligation Past Anesthesia/Blood Transfusion Reactions: No Reported Reaction Past Psychological History: Anxiety Additional Psychological History / Comment(s): r/t procedure Smoking Status: Former smoker Past Alcohol Use History: Unable to Obtain, Occasional Additional Past Alcohol Use History / Comment(s): quit smoking 05-28-21 Past Drug Use History: None Reported - Past Family History Mother Family Medical History: No Reported History Medications and Allergies Home Medications Medication Instructions Recorded Confirmed Type Losartan Potassium 100 mg PO DAILY 11/19/14 09/18/21 History Omeprazole [PriLOSEC] 20 mg PO DAILY 08/19/16 09/18/21 History carvediloL [Coreg] 3.125 mg PO QAM 08/19/16 09/18/21 History traMADol HCL [Ultram] 50 mg PO Q6HR PRN 10/10/19 09/18/21 History Pravastatin Sodium [Pravachol] 40 mg PO DAILY 09/18/21 09/18/21 History Allergies Allergy/AdvReac Type Severity Reaction Status Date / Time ibuprofen [From Motrin] AdvReac Nausea & Verified 09/18/21 11:02 Vomiting naproxen [From Naprosyn] AdvReac Nausea & Verified 09/18/21 11:02 Vomiting Surgical - Exam Vital Signs Temp Pulse Resp BP Pulse Ox 98.1 F 73 16 162/91 96 09/18/21 10:58 09/18/21 10:58 09/18/21 10:58 09/18/21 10:58 09/18/21 10:58 BMI: 32.6 - General moderate distress - Eyes normal ocular movement - Neck trachea midline - Respiratory normal respiratory effort, clear to auscultation - Cardiovascular Rhythm: regular Heart Sounds: normal: S1, S2 - Abdomen Abdomen: soft - Integumentary normal turgor - Neurologic no disoriented, no combative - Musculoskeletal normal gait - Psychiatric oriented to time, oriented to person, oriented to place, speech is normal, memory intact Breast Exam: BRA: 40C inspection: Right breast slightly larger than left breast, bilateral grade 2/3 ptosis Palpation: Right breast: Multiple positional exam fibrocystic changes no dominant masses or nodules of concern particularly attention to the 3:00 area does not reveal any palpable mass Right axilla: No adenopathy of concern Left breast: Multi-positional exam fibrocystic changes no dominant masses or nodules of concern Left axilla: No adenopathy of concern Results Mammogram reviewed personally with Dr. Richmond Assessment and Plan Assessment: Impression: Radiographic abnormality right breast/unable to do stereotactic core biopsy secondary to difficulty laying on the table Fibrocystic breast changes anxiety perimenopausal Plan: We have discussed open biopsy in the operating room versus an attempt at stereo biopsy on an operating table, and we would like to plan for an attempt at stereo biopsy if she is unable to tolerate this and we would plan a needle localization excision in the operating room Hormone levels to assess her menopausal status will be obtained Risk and benefits of the surgery procedure discussed with the patient. She understands and wishes to proceed. CC: Dr. Pitt
[2021-09-18 18:01] LABS: Follicle Stimulating Hormone 61.8 mIU/mL; Luteinizing Hormone 33.8 mIU/mL
== END ==
LOC: WWCWWP 10:48
PROVIDERS: ATTEND Surgery
DX: R92.8 Other abnormal and inconclusive findings on diagnostic imaging of breast (principal); N60.11 Diffuse cystic mastopathy of right breast; N60.12 Diffuse cystic mastopathy of left breast; F41.9 Anxiety disorder, unspecified; Z78.0 Asymptomatic menopausal state; I10 Essential (primary) hypertension; Z87.891 Personal history of nicotine dependence; K21.9 Gastro-esophageal reflux disease without esophagitis; Z88.6 Allergy status to analgesic agent
CPT/HCPCS: 82672; 83001; 83002; 84144; 84443

== ENCOUNTER → 2021-11-06 | Outpatient (CLI) | payer BC ==
[2021-11-06 15:26] VITALS: BP 160/83; PULSE 64; RESP 18; TEMP 97.5
--- NOTE | 2021-11-06 15:30 | P.PN ---
Subjective Progress Note Date: 11/06/21 Principal diagnosis: Fibrocystic breast changes Lila is a 61-year-old white female who was noted to have a mammographic abnormality in the right breast. Stereotactic core biopsy was recommended however she was unable to tolerate laying on the low back table. Therefore a stereo biopsy via an upright table at [facility] was performed. The calcifications of concern were felt to have been sampled. The pathology revealed fibroadenomatoid change and associated microcalcifications. She tolerated the biopsy, however it is still sore. It was black-and blue. Additionally the patient had estrogen levels drawn which were 56, as well as TENS H FSH and LH. TSH was 1.64, FSH was 61.8, and LH was 33.8. Objective - Constitutional General appearance: Present: cooperative - EENT Eyes: Present: EOMI ENT: Present: hearing grossly normal - Neck Neck: Present: normal ROM - Respiratory Respiratory: bilateral: CTA - Cardiovascular Heart sounds: normal: S1, S2 - Integumentary Integumentary Comment(s): no evidence of infection or hematoma Integumentary: Present: normal turgor Assessment and Plan Assessment: Impression: Fibrocystic breast changes Plan: Repeat right breast mammogram in 6 months with physician exam at that time Review hormone levels with primary care doctor CC: Dr. Pitt
== END ==
LOC: WWCWWP 15:16
PROVIDERS: ATTEND Surgery
DX: N60.19 Diffuse cystic mastopathy of unspecified breast (principal); Z88.6 Allergy status to analgesic agent; F17.200 Nicotine dependence, unspecified, uncomplicated

== ENCOUNTER → 2022-01-12 | Outpatient (CLI) | payer BC ==
--- NOTE | 2022-01-12 18:28 | XR ---
EXAMINATION TYPE: XR chest 2V DATE OF EXAM: 01/12/2022 4:37 PM COMPARISON: Chest radiographs from 05/10/2018 TECHNIQUE: XR chest 2V Frontal and lateral views of the chest. CLINICAL INDICATION:Female, 61 years old with history of R059; FINDINGS: Lungs/Pleura: There is no evidence of pleural effusion, focal consolidation, or pneumothorax. Pulmonary vascularity: Unremarkable. Heart/mediastinum: Cardiomediastinal silhouette is unremarkable. Musculoskeletal: No acute osseous pathology. IMPRESSION: No acute cardiopulmonary disease/process.
== END | disposition home or self-care (01) ==
LOC: RADXRMAIN 16:21
PROVIDERS: ATTEND Internal Medicine
DX: R05.9 Cough, unspecified (principal)
CPT/HCPCS: 71046

== ENCOUNTER → 2022-07-23 | Outpatient (CLI) | payer BC ==
--- NOTE | 2022-07-27 04:50 | CT ---
EXAMINATION TYPE: CT soft tissue neck w con DATE OF EXAM: 07/23/2022 COMPARISON: 04/09/2016 HISTORY: 62-year-old female R22.1, Neck swelling and pain. TECHNIQUE: Contiguous axial scanning of the soft tissues of the neck performed with IV Contrast, damien ent injected with 100ml mL of Isovue 300. Coronal/sagittal reconstructions performed. CT DLP: 634.9 mGycm Automated exposure control for dose reduction was used. FINDINGS: The visualized intracranial structures, paranasal sinuses, and mastoid air cells appear clear. Rightw jordan nasal septal deviation. There appears to be new diffuse mucosal space thickening at the nasopharynx, axial image 80. Mild cir cumferential mucosal space thickening extends down to the junction with the oropharynx. Mild thickening of the bilateral lingual tonsils. Oropharynx otherwise clear. Some circumferential narrowing at the level of the supraglottic airway, axial image 54 appears to hav e been present in 2017 as well. The glottic and subglottic structures as well as the tracheal column appear clear. Moderate to advanced emphysematous change in the visualized upper lungs. The thyroid gland, submandibular glands, and bilateral parotid glands appear satisfactory. There is a borderline to mildly enlarged right upper cervical lymph node measuring 1.5 cm short axis, axial image 61 and coronal image 28. Otherwise, no cervical lymphadenopathy is seen. Bones: No osseous destructive process. IMPRESSION: 1. [id number] DIFFUSE MUCOSAL SPACE THICKENING AT THE LEVEL OF THE NASOPHARYNX EXTENDING DOWN C IRCUMFERENTIALLY TO THE JUNCTION WITH THE OROPHARYNX. CONSIDER AN INFLAMMATORY ETIOLOGY. DIRECT VISUA LIZATION FOR MORE DETAILED ASSESSMENT. 2. CIRCUMFERENTIAL NARROWING AT THE LEVEL OF THE SUPRAGLOTTIC AIRWAY APPEARS TO HAVE BEEN PRESENT IN 2017 WELL AND MAY BE TRANSIENT. AGAIN, CORRELATE WITH DIRECT VISUALIZATION. 3. A SOLITARY BORDERLINE TO MILDLY ENLARGED RIGHT UPPER CERVICAL LYMPH NODE MEASURING 1.5 CM SHORT AX IS. THIS SHOULD BE FOLLOWED CLINICALLY. CONSIDER FOLLOW-UP CT IN 3 MONTHS TO ENSURE STABILITY/RESOLUT ION. 4. COPD WITH MODERATE TO ADVANCED EMPHYSEMA.
== END | disposition home or self-care (01) ==
LOC: RADCTMAIN 11:51
PROVIDERS: ATTEND Internal Medicine
DX: J43.9 Emphysema, unspecified (principal); J34.89 Other specified disorders of nose and nasal sinuses; R22.1 Localized swelling, mass and lump, neck
CPT/HCPCS: 70491; Q9967

== ENCOUNTER → 2022-08-23 | Outpatient (CLI) | payer BC ==
--- NOTE | 2022-08-23 12:27 | US ---
EXAMINATION TYPE: US liver DATE OF EXAM: 08/23/2022 COMPARISON: Renal ultrasound 10/25/2019, CT abdomen and pelvis 10/10/2019, abdominal ultrasound 7 CLINICAL INDICATION: Female, 62 years old with history of R94.5 ABN LIVER FUNCTIONS; Abn liver functi on test. TECHNIQUE: Multiple sonographic images of the right upper quadrant are obtained. FINDINGS: EXAM MEASUREMENTS: Liver Length: 15.2 cm Gallbladder Wall: .2 cm CBD: .3 cm Right Kidney: 11.1 x 4.8 x 4.8 cm INDUSTRIAL TECHNOLOGY TEACHER NOTES: Pancreas: Tail obscured by overlying bowel gas Liver: Increased attenuation Gallbladder: No stones seen Evidence for sonographic Hurd's sign: No CBD: wnl Right Kidney: wnl The visualized portions of the pancreas unremarkable. The tail is obscured by overlying bowel gas. Th e liver is diffusely hyperechoic. No focal lesion identified. Gallbladder is unremarkable without dylon dence of cholelithiasis, wall thickening, or pericholecystic fluid. Per petrol tanker driver, negative sonogra phic Hurd sign. Common bile duct within normal limits. Right kidney is unremarkable without evidenc e of hydronephrosis, shadowing calculi, or solid mass. IMPRESSION: 1. No acute process. 2. Hepatic steatosis.
== END | disposition home or self-care (01) ==
LOC: RADUSWWP 11:54
PROVIDERS: ATTEND Internal Medicine
DX: K76.0 Fatty (change of) liver, not elsewhere classified (principal); R94.5 Abnormal results of liver function studies
CPT/HCPCS: 76705

== ENCOUNTER → 2023-03-10 | Outpatient (CLI) | payer BC ==
--- NOTE | 2023-03-10 15:06 | XR ---
EXAMINATION TYPE: XR wrist complete 4 views LT, XR hand complete 3 views LT DATE OF EXAM: 03/10/2023 COMPARISON: NONE HISTORY: 62-year-old female R5 2, pain and bruising FINDINGS: Left wrist: Positive ulnar variance. There appears to be some slight prominence to the scapholunate interval at 2 mm. Midcarpal compartment otherwise appears intact as does the distal radial ulnar joint. No acute f racture, subluxation, dislocation. Hand: Mild to moderate degenerative spurring and joint space narrowing first CMC and triscaphe joints. No a cute fracture, subluxation, or dislocation. IMPRESSION: 1. Questionable slight prominence to the scapholunate interval at 2 mm. Correlate for possible underl jessy age-indeterminate sprain of the scapholunate ligament. 2. Slight positive ulnar variance. 3. Mild osteoarthritic change at the base of the thumb. 4. No acute osseous abnormality seen.
== END | disposition home or self-care (01) ==
LOC: RADXRMAIN 10:28
PROVIDERS: ATTEND Internal Medicine
DX: S60.222A Contusion of left hand, initial encounter (principal); M19.042 Primary osteoarthritis, left hand

== ENCOUNTER → 2023-07-11 | Outpatient (CLI) | payer BC ==
--- NOTE | 2023-07-11 19:38 | MM ---
Reason for Exam: Screening (asymptomatic). Last mammogram was performed 1 year(s) and 3 month(s) ago. Patient History: Menarche at age 14. First Full-Term at age 20. Left ovary removed at age 49. Right ovary removed at age 49. Hysterectomy at age 49. Postmenopausal. Patient has history of breast feeding. 10/22/2021, MG stereo VAD BX RT on the Right side. 06/08/2021, MG discontinued stereo core RT on the right side. Risk Values: Madison 5 year model risk: 1.5%. NCI Lifetime model risk: 6.5%. Prior Study Comparison: 03/18/2021 Bilateral Screening Mammogram, [facility]. 03/26/2021 Right Diagnostic Mammogram, [facility]. 04/26/2022 Bilateral MG 3D diag mammo w/cad LIVIA, [facility]. Tissue Density: There are scattered areas of fibroglandular density. Findings: Analyzed By CAD. Microclip right breast from prior biopsy. Bilateral areas of asymmetric density are unchanged. There is no suspicious group of microcalcifications or new suspicious mass in either breast. Overall Assessment: Benign, BI-RAD 2 Management: Screening Mammogram of both breasts in 1 year. . Patient should continue monthly self-breast exams. A clinical breast exam by your physician is recommended on an annual basis. This exam should not preclude additional follow-up of suspicious palpable abnormalities. Note on Madison scores and lifetime risk: 1. A Madison score greater than 3% is considered moderate risk. If this is the case, consider specialist referral to assess eligibility for a risk reducing agent. 2. If overall lifetime risk for the development of breast cancer is 20% or higher, the patient may qualify for future screening with alternating mammogram and breast MRI. Electronically signed and approved by: Eric Kulkarni M.D. Radiologist
== END | disposition home or self-care (01) ==
LOC: RADMAMWWP 13:17
PROVIDERS: ATTEND Internal Medicine
DX: Z12.31 Encounter for screening mammogram for malignant neoplasm of breast (principal); Z78.0 Asymptomatic menopausal state
CPT/HCPCS: 77063; 77067

== ENCOUNTER 2023-11-02 13:45 | Emergency (ER) | payer BC ==
--- NOTE | 2023-11-02 15:09 | CT ---
EXAMINATION TYPE: CT brain jaynaine wo con DATE OF EXAM: 11/02/2023 COMPARISON: None HISTORY: 63-year-old female dizziness, neck pain, unresolving ear infection CT DLP: 1449.6 mGycm Automated exposure control for dose reduction was used. Technique: Examination of the head was done in axial plane without intravenous contrast. Coronal and sagittal reconstructions performed. CT of the cervical spine was obtained in axial plane without intravenous injection of contrast mater ial. Coronal and sagittal reformatted images were obtained from the axial views for evaluation of f ractures, spinal alignment and canal. FINDINGS: Head: There is no evidence of acute intracranial hemorrhage, acute ischemic changes, mass, mass-effect, or extra-axial fluid collection. There is no effacement of cerebral sulci or basal subarachnoid cister ns. There is no hydrocephalus. There is no midline shift. Villareal-white matter distinction is preserv ed. Mild age-related volume loss overlying the bifrontal convexities. Slight rightward nasal septal deviation. Mastoid air cells and middle ear cavities appear well pneuma tized. Orbits and globes are intact. Cervical spine: No craniocervical junction abnormality, predental space widening, or prevertebral soft tissue swellin g. Degenerative change of the C1 dens articulation. Moderate degenerative disc disease mid to lower cervical spine. No acute fracture seen. Alignment is maintained. Mild to moderate degenerative disc disease mid to lower cervical spine. No evidence of canal compromi se by CT. Mild facet and uncovertebral joint arthropathy with variable mild neural foraminal narrowing. Modera te on the left at C5-C6. Emphysematous changes in the visualized upper lungs with superimposed groundglass. Sagittal and coronal reformatted images confirm above findings. COMBINED IMPRESSION: 1. No acute intracranial abnormality seen. 2. No acute fracture malalignment in the cervical spine. Mild spondylotic change. Moderate left neura l foraminal stenosis at C5-C6. 3. The middle ear cavities and mastoid air cells appear well-pneumatized. 4. COPD with superimposed groundglass in the visualized upper lungs. Findings may be due to generaliz ed atelectasis, a nonspecific pneumonitis, or CHF. Clinical correlate.
--- NOTE | 2023-11-02 15:20 | ED ---
ENT HPI - General Chief complaint: Dizziness Stated complaint: Earache,Dizziness Time Seen by Provider: 11/02/23 14:13 Source: patient, RN notes reviewed Mode of arrival: ambulatory Limitations: no limitations - History of Present Illness Initial comments: This is a 63-year-old female who presents to the emergency department for earaches and dizziness. States that a month ago she was developing pain in her ears, which caused her to feel dizzy. She was first put on Augmentin, which gave her diarrhea. She was then switched to doxycycline, which was ineffective. She was then put on Levaquin, which she states she has 1 day left of. She continues to have pain and feelings of fullness in her ears. States that this is also causing muffled hearing. Denies any fevers or chills. She is also developing headaches and feels like the pain is extending up from her ears down her neck. She is concerned about an ear infection not going away and would like a CT scan of the brain. She is also concerned about repetitive antibiotic use. - Related Data Home Medications Medication Instructions Recorded Confirmed Losartan Potassium 100 mg PO DAILY 11/19/14 05/06/22 Omeprazole [PriLOSEC] 20 mg PO DAILY 08/19/16 05/06/22 carvediloL [Coreg] 3.125 mg PO QAM 08/19/16 05/06/22 traMADol HCL [Ultram] 50 mg PO Q6HR PRN 10/10/19 05/06/22 Pravastatin Sodium [Pravachol] 40 mg PO DAILY 09/18/21 05/06/22 Previous Rx's Medication Instructions Recorded Cetirizine HCl/Pseudoephedrine 1 each PO BID #30 tab 11/02/23 [Cetirizine-Pse ER 5-120 mg Tab] Allergies Allergy/AdvReac Type Severity Reaction Status Date / Time ibuprofen [From Motrin] AdvReac Nausea & Verified 11/02/23 13:57 Vomiting naproxen [From Naprosyn] AdvReac Nausea & Verified 11/02/23 13:57 Vomiting Review of Systems ROS Statement: Those systems with pertinent positive or pertinent negative responses have been documented in the HPI. ROS Other: All systems not noted in ROS Statement are negative. Past Medical History Past Medical History: GERD/Reflux, Hypertension Additional Past Medical History / Comment(s): 2 herniated dics in neck and two in back. Right shoulder pain, bicep tendonitis, neck pain History of Any Multi-Drug Resistant Organisms: None Reported Past Surgical History: Bladder Surgery, Hysterectomy, Tonsillectomy, Tubal Ligation Past Anesthesia/Blood Transfusion Reactions: No Reported Reaction Past Psychological History: Anxiety Smoking Status: Former smoker Past Alcohol Use History: Unable to Obtain, Occasional Past Drug Use History: None Reported - Past Family History Mother Family Medical History: No Reported History General Exam Limitations: no limitations General appearance: alert, in no apparent distress Head exam: Present: atraumatic, normocephalic, normal inspection ENT exam: Present: other (Bilateral serous otitis media without erythema of the TMs or canals.) Respiratory exam: Present: normal lung sounds bilaterally. Absent: respiratory distress, wheezes, rales, rhonchi, stridor Cardiovascular Exam: Present: regular rate, normal rhythm, normal heart sounds. Absent: systolic murmur, diastolic murmur, rubs, gallop, clicks Neurological exam: Present: alert, oriented X3, CN II-XII intact Psychiatric exam: Present: normal affect, normal mood Skin exam: Present: warm, dry, intact, normal color. Absent: rash Course Vital Signs 11/02/23 11/02/23 13:53 16:44 Temperature 97.8 F 98.6 F Pulse Rate 80 70 Respiratory 20 16 Rate Blood Pressure 146/80 133/90 O2 Sat by Pulse 98 96 Oximetry Medical Decision Making - Medical Decision Making This is a 63 year old female who presents to the emergency department for ear pain and dizziness. Was pt. sent in by a medical professional or institution? @ -No Did you speak to anyone other than the patient for history? @ -No Did you review nursing and triage notes? @ -Yes, and I agree, it is accurate with regards to the patient's symptoms. Were old charts reviewed? @ -No Differential Diagnosis? @ -Differential Ear Pain: Otitis media, otitis externa, eustachian tube dysfunction, allergic rhinitis, barotrauma, bullous myringitis, this is not meant to be an all-inclusive list. EKG interpreted by me (3pts min.)? @ -Not obtained X-rays interpreted by me (1pt min.)? @ -Not obtained CT interpreted by me (1pt min.)? @ -CT scan of the brain and C-spine obtained. My interpretation identifies no evidence of a tumor. U/S interpreted by me (1pt. min.)? @ -Not obtained What testing was considered but not performed? (CT, X-rays, U/S, labs)? Why? @ -Lab work, however patient refused. What meds were considered but not given? Why? @ -None Did you discuss the management of the patient with other professionals? @ -No Did you reconcile home meds? @ -No Was smoking cessation discussed for >3mins.? @ -I discussed smoking cessation for greater than 3 minutes. The risk of smoking were discussed with the patient including but not limited to risks of cancer, stroke, coronary artery disease and COPD. Also discussed with patient were multiple methods of quitting smoking. Lastly we discussed the financial cost of smoking. Was critical care preformed (if so, how long)? @ -No Were there social determinants of health that impacted care today? How? (Homelessness, low income, unemployed, alcoholism, drug addiction, transportation, low edu. Level, literacy, decrease access to med. care, group home, rehab)? @ -No Was there de-escalation of care discussed even if they declined? (Discuss DNR or withdrawal of care, Hospice)? @ -No What co-morbidities impacted this encounter? (DM, HTN, Smoking, COPD, CAD, Cancer, CVA, Hep., AIDS, mental health diagnosis, sleep apnea, morbid obesity)? @ -Smoking Was patient admitted / discharged? @ -Discharged. Patient refused any lab work, she states that she just had some done. We did proceed with a CT scan of the brain and C-spine was included as well as due to her neck pain. This revealed no acute process to account for the patient's symptoms. On exam she appeared to have possible serous otitis media, as she had fluid behind her ears, but did not have any evidence of infection otherwise. Advised that we are not going to proceed with any additional antibiotics at this time. Advised decongestants and Flonase nasal spray. Claritin-D was prescribed. Advised follow-up with ENT as well and she was given information for ENT follow-up. Patient discharged home in stable condition. Case discussed with ED attending Dr. Salmon. Return precautions reviewed in depth, the patient is instructed to return to the emergency department with any new, worsening, or concerning symptoms. Patient verbalized understanding. Undiagnosed new problem with uncertain prognosis? @ -None Drug Therapy requiring intensive monitoring for toxicity (Heparin, Nitro, Insulin, Cardizem)? @ -None Were any procedures done? @ -None Diagnosis/symptom? @ -Serous otitis media Acute, or Chronic, or Acute on Chronic? @ -Acute Uncomplicated (without systemic symptoms) or Complicated (systemic symptoms)? @ -Uncomplicated Side effects of treatment? @ -None Exacerbation, Progression, or Severe Exacerbation] @ -Stable Poses a threat to life or bodily function? @ -No - Radiology Data Radiology results: report reviewed, image reviewed Disposition Clinical Impression: Eustachian tube dysfunction, Serous otitis media Disposition: HOME SELF-CARE Instructions (If sedation given, give patient instructions): Fluid In The Ear (Serous Otitis Media) (ED) Additional Instructions: Return to the emergency department with any new, worsening, or concerning symptoms. Begin taking the cetirizine pseudoephedrine medication twice daily. You can purchase this [id number] if it is cheaper. Look for any kind of antihistamine allergy medication with a decongestant associated with it. Also start using Flonase nasal sprays as 2 sprays in each nostril once daily. Contact the ENT providers listed below tomorrow morning for a follow-up appointment. Let them know that you were seen in the emergency department and were advised to schedule a follow-up appointment. Prescriptions: Cetirizine HCl/Pseudoephedrine [Cetirizine-Pse ER 5-120 mg Tab] 1 each PO BID #30 tab Is patient prescribed a controlled substance at d/c from ED?: No Referrals: Adrian Solis MD [STAFF PHYSICIAN] - 1-2 days Rubén Pitt MD [Primary Care Provider] - 1-2 days Alex Fabian MD [STAFF PHYSICIAN] - 1-2 days Time of Disposition: 16:18
[2023-11-02 16:44] VITALS: BP 133/90; PULSE 70; RESP 16; TEMP 98.6
== END 2023-11-02 16:44 | disposition home or self-care (01) ==
LOC: EC 13:45
CPT/HCPCS: 70450; 72125; 99284; 99406

== ENCOUNTER → 2023-12-07 | Outpatient (CLI) | payer BC ==
--- NOTE | 2023-12-07 10:49 | US ---
EXAMINATION TYPE: US kidneys/renal and bladder DATE OF EXAM: 12/07/2023 COMPARISON: US 2019 CLINICAL INDICATION: Female, 63 years old with history of N20.0 KIDNEY STONES; Hx kidney stones. TECHNIQUE: Grayscale and color Doppler imaging of the bilateral kidneys and urinary bladder: FINDINGS: EXAM MEASUREMENTS: Right Kidney: 11.0 x 5.5 x 4.9 cm Left Kidney: 11.9 x 5.2 x 5.5 cm Right Kidney: No hydronephrosis, nephrolithiasis or masses seen Left Kidney: No hydronephrosis, nephrolithiasis or masses seen Bladder: Appears anechoic. No obvious wall thickening or calcification. Bilateral Jets seen: Yes Renal cortex thickness and echogenicity maintained. IMPRESSION: No hydronephrosis or nephrolithiasis. [facility], , 12/07/2023 10:47 AM
== END | disposition home or self-care (01) ==
LOC: RADUSWWP 08:16
PROVIDERS: ATTEND Internal Medicine
CPT/HCPCS: 76770

== ENCOUNTER → 2024-07-10 | Outpatient (CLI) | payer BC ==
--- NOTE | 2024-07-10 13:22 | CT ---
CT urogram HISTORY: Microscopic hematuria COMPARISON: 10/10/2019 TECHNIQUE: Multiple axial images are obtained through the abdomen and pelvis before and after the une ventful administration of nonionic IV contrast. Postcontrast delayed images were obtained. FINDINGS: Lung bases are clear. On the pre-IV contrast images, there are no renal calcifications or ureteral calcifications. There a re no gallstones. The gallbladder is normal and there is no distention or biliary ductal dilatation. There are no focal masses within the liver, pancreas, spleen or adrenal glands and there is no organo megaly. There is moderate liver steatosis. Kidneys excrete contrast promptly and symmetrically and there is no solid renal mass, hydronephrosis or filling defect within the renal collecting systems, ureters or urinary bladder. The bowel loops are normal in caliber and there is no dilatation or obstruction. No inflammatory han ges are identified in the bowel wall or mesentery. There is no free intraperitoneal air or fluid. There is no pelvic mass, free fluid, abscess or adenopathy. There is surgical absence of the uterus. The osseous structures are intact. There is mild to moderate multilevel degenerative disease in the l ower lumbar spine. IMPRESSION: 1. No solid renal mass, renal calcification, hydronephrosis or filling defect within the renal collec ting systems, ureters or urinary bladder. 2. Moderate liver steatosis [facility], Workstation: [id number] 07/10/2024 1:20 PM
== END | disposition home or self-care (01) ==
LOC: RADCTMAIN 12:06
PROVIDERS: ATTEND Urology
DX: K76.0 Fatty (change of) liver, not elsewhere classified (principal); R31.1 Benign essential microscopic hematuria
CPT/HCPCS: 74178; 36415; 74400; Q9967